=== PATIENT | female | born 1935 | race Caucasian/White ===

== ENCOUNTER → 2018-07-23 | Outpatient (CLI) | payer MEDICARE, BC ==
--- NOTE | 2018-07-23 10:34 | US ---
LOWER EXTREMITY VENOUS INSUFFICIENCY SIDE PERFORMED: Bilateral 1) Color flow is present and patency is documented in the following vessels. No DVT or SVT is noted . EIV Common Femoral Vein Deep Femoral Vein Femoral Vein Popliteal Vein Proximal Calf Veins Greater Saph Vein Upper Small Saph Vein 2) There is venous reflux noted at the following venous levels: NO venous reflux seen at this time Difficult and limited study due to patient body habitus and leg swelling. No acute deep or superfic ial vein thrombus seen on images saved. Moderate subcutaneous edema popliteal region is identified bi laterally more prominent in the left lower extremity. IMPRESSION: As above.
== END | disposition home or self-care (01) ==
LOC: RADUSWWP 08:54
PROVIDERS: ATTEND Podiatrist
DX: R60.0 Localized edema (principal)
CPT/HCPCS: 93970